=== PATIENT | female | born 1985 | race Caucasian/White ===

== ENCOUNTER 2021-02-13 07:21 | Emergency (ER) | payer OTHER ==
[2021-02-13 08:02] LABS: BILIRUBIN Negative (Negative); BLOOD 2+ (Negative); CLARITY Cloudy (Clear); COLOR Yellow (Yellow); GLUCOSE Negative (Negative); KETONE Trace (Negative); LEUKO ESTERASE 3+ (Negative); NITRITE Positive (Negative); PH 5.5 (4.5-8.0)
[2021-02-13 08:13] LABS: RBC 31-40 rbc/hpf (0-2); WBC TNTC wbc/hpf (0-5)
[2021-02-13 08:14] LABS: BACTERIA 4+
[2021-02-13] MEDS ORDERED: PYRIDIUM200 M1 PO (08:32)
[2021-02-13] MEDS ORDERED: SEPTDS PO (08:32)
== END 2021-02-13 09:08 | disposition home or self-care (01) ==
LOC: ED 07:21
PROVIDERS: Emergency Medicine
DX: N39.0 Urinary tract infection, site not specified (principal); R31.9 Hematuria, unspecified; Z91.040 Latex allergy status

== ENCOUNTER 2021-05-30 19:45 | Emergency (ER) | payer OTHER ==
[~2021-05-30] VITALS: Ht 162.5 cm; Wt 122.5 kg
[~2021-05-30 19:45] MED LIST: PYRIDIUM200 M1 PO; SEPTDS PO
== END 2021-05-30 20:36 | disposition left against medical advice (07) ==
LOC: ED 19:45
DX: J02.9 Acute pharyngitis, unspecified (principal); Z53.21 Procedure and treatment not carried out due to patient leaving prior to being seen by health care provider

== ENCOUNTER → 2021-06-28 | Outpatient (CLI) | payer OTHER | END | disposition home or self-care (01) | LOC: COVID19 18:10 | PROVIDERS: ATTEND Podiatrist Foot & Ankle Surgery | DX: U07.1 COVID-19 (principal) ==

== ENCOUNTER 2021-08-12 17:39 | Emergency (ER) | payer OTHER ==
[~2021-08-12] VITALS: Ht 162.5 cm; Wt 127.0 kg
[2021-08-12 18:59] LABS: BILIRUBIN Negative (Negative); BLOOD Negative (Negative); CLARITY Cloudy (Clear); COLOR Yellow (Yellow); GLUCOSE Negative (Negative); KETONE Negative (Negative); LEUKO ESTERASE Trace (Negative); NITRITE Negative (Negative); SPECIFIC GRAVITY 1.025 (1.001-1.030); UROBILINOGEN 0.2 E.U./dl (0.0-1.0)
[2021-08-12 19:02] LABS: BASO % 0.3 % (0.0-1.0); EOS # 0.1 10*3/uL (0.0-0.4); EOS % 0.9 % (1.0-4.0); HEMATOCRIT 37.7 % (37.0-47.0); LYMPH # 2.4 10*3/uL (1.3-4.4); LYMPH % 16.9 % (27.0-41.0); MEAN CELL VOLUME 76.8 fl (81.0-99.0); MEAN CORPUSCULAR HGB 24.8 pg (27.0-31.0); MEAN CORPUSCULAR HGB CONC 32.4 g/dl (33.0-37.0); MEAN PLATELET VOLUME 10.2 fl (9.6-12.3); MONO # 0.9 10*3/uL (0.1-1.0); MONO % 6.1 % (3.0-9.0); NEUT # 10.6 10*3/uL (2.3-7.9); NEUT % 75.3 % (47.0-73.0); PLATELET COUNT AUTOMATED 295 10*3/uL (130-400); RED BLOOD COUNT 4.91 10*6/uL (4.10-5.10); RED CELL DISTRI WIDTH 15.2 % (0-14.5)
[2021-08-12 19:05] LABS: BACTERIA 4+
[2021-08-12 19:17] LABS: ALKALINE PHOSPHATASE 93 U/L (45-117); BUN 12 mg/dl (7-24); CHLORIDE 109 mmol/L (98-107); CREATININE 0.68 mg/dL (0.55-1.02); POTASSIUM 3.8 mmol/L (3.5-5.1); SGOT/AST 11 IU/L (3-35); SGPT/ALT 14 U/L (12-78); SODIUM 139 mmol/L (136-145); TOTAL PROTEIN 7.6 gm/dL (6.4-8.2)
[2021-08-12] MEDS ORDERED: Motrin,Rufen800 MG PO (22:39)
[2021-08-12] MEDS ORDERED: CIPROFLOXACIN250 MG PO (22:39)
== END 2021-08-12 23:29 | disposition home or self-care (01) ==
LOC: ED 17:39
PROVIDERS: Nurse Practitioner
DX: S30.1XXA Contusion of abdominal wall, initial encounter (principal); N39.0 Urinary tract infection, site not specified; Z91.040 Latex allergy status; V57.5XXA Driver of pick-up truck or van injured in collision with fixed or stationary object in traffic accident, initial encounter; Y93.89 Activity, other specified; Y92.89 Other specified places as the place of occurrence of the external cause; Y99.8 Other external cause status

== ENCOUNTER → 2025-02-26 | Outpatient (CLI) | payer OTHER ==
[~2025-02-26] MED LIST changes: +CIPROFLOXACIN250 MG PO; +Motrin,Rufen800 MG PO
== END | disposition home or self-care (01) ==
LOC: RESCLI 10:02
PROVIDERS: ATTEND Internal Medicine
DX: M25.512 Pain in left shoulder (principal); I10 Essential (primary) hypertension; G47.00 Insomnia, unspecified; E66.09 Other obesity due to excess calories; D50.9 Iron deficiency anemia, unspecified; E11.9 Type 2 diabetes mellitus without complications; K21.9 Gastro-esophageal reflux disease without esophagitis

== ENCOUNTER → 2025-04-16 | Outpatient (CLI) | payer OTHER | END | disposition home or self-care (01) | LOC: RESCLI 02:46 | PROVIDERS: ATTEND Student in an Organized Health Care Education/Training Program | DX: E66.09 Other obesity due to excess calories (principal); G47.00 Insomnia, unspecified; D50.9 Iron deficiency anemia, unspecified; E11.9 Type 2 diabetes mellitus without complications; K21.9 Gastro-esophageal reflux disease without esophagitis ==

== ENCOUNTER → 2025-05-07 | Outpatient (CLI) | payer OTHER ==
[2025-05-07 12:15] LABS: BUN 13 mg/dl (9-23); SGPT/ALT 22 U/L (5-49); VITAMIN D, 25-HYDROXY 18.2 ng/mL (30-100)
== END | disposition home or self-care (01) ==
LOC: LAB 10:56
PROVIDERS: ATTEND Student in an Organized Health Care Education/Training Program
DX: E11.9 Type 2 diabetes mellitus without complications (principal)